=== PATIENT | female | born 1960 | race Caucasian/White ===

== ENCOUNTER 2017-06-04 22:19 | Observation (INO) | payer BC ==
[~2017-06-04] VITALS: Ht 157.5 cm; Wt 71.8 kg
[2017-06-04] MEDS ORDERED: ENALAPRIL MALEA10 MG PO (22:36)
[2017-06-04 22:47] LABS: POINT-OF-CARE METER ID UU14100415
[2017-06-04 23:06] LABS: HEMATOCRIT 39.3 % (36.0-46.0); MCH 30.9 PG (29.0-34.0); MCHC 34.6 G/DL (30.0-36.0); MCV 89.3 FL (83-99); MEAN PLAT.VOLUME 9.7 uM^3 (9.5-12.4); PLATELET COUNT 224 K/uL (156-360); RBC DIS.WIDTH-CV 11.8 % (11.8-14.6); RBC DIS.WIDTH-SD 38.4 % (39-53); WHITE BLOOD COUNT 6.9 K/uL (4.1-10.2)
[2017-06-04 23:16] LABS: CHLORIDE 111 mEq/L (99-109); POTASSIUM 3.5 mEq/L (3.7-5.4); SODIUM 145 mEq/L (136-147)
[2017-06-04 23:18] LABS: GLUCOSE 98 mg/dL (70-99)
[2017-06-04 23:19] LABS: ANION GAP 9 MEQ/L (2-14)
[2017-06-04 23:21] LABS: SERUM ETHYL ALCOHOL < 10 mg/dL
[2017-06-04 23:22] LABS: GFR ESTIMATE (CALCULATED) > 59 mL/min/
[2017-06-04 23:23] LABS: UREA NITROGEN (BUN) 19 mg/dL (9-23)
[2017-06-04 23:28] LABS: TROP-I INTERPRETATION NEGATIVE; TROPONIN-I < 0.01 ng/mL (0.0-0.30)
[2017-06-05] MEDS ORDERED: PREVACID30 MG PO (00:09)
[2017-06-05] MEDS ORDERED: DAILY VALUE1 EACH PO (00:10)
[2017-06-05] MEDS ORDERED: ASPIR 8181 M1 PO (00:10)
[2017-06-05] MEDS ORDERED: XYZAL5 MG PO (00:11)
[2017-06-05 01:16] VITALS: BP 169/81
[2017-06-05 02:20] VITALS: BP 146/88
[2017-06-05 03:30] VITALS: BP 149/74
[2017-06-05 06:16] LABS: ADD MIUA? NO; BILIRUBIN NEGATIVE; BLOOD NEGATIVE; COLOR YELLOW ((YELLOW)); GLUCOSE (STRIP) NEGATIVE; KETONES NEGATIVE; LEUKOCYTES NEGATIVE; NITRITE NEGATIVE; PROTEIN (STRIP) NEGATIVE; SPECIFIC GRAVITY 1.015 (1.000-1.030); UCUL ADDED? NO; UROBILINOGEN 0.2 MG/DL (0.2-1.0)
[2017-06-05 08:30] VITALS: BP 162/78
[2017-06-05 08:44] LABS: ALKALINE PHOSPHATASE 70 IU/L (3-129); ANION GAP 6 MEQ/L (2-14); CHLORIDE 108 MEQ/L (99-109); GFR ESTIMATE (CALCULATED) > 59 mL/min/; GLUCOSE 101 mg/dL (70-99); HDL CHOLESTEROL 50 MG/DL (Desirable>=50); LDL CHOLESTEROL 107 mg/dL (Desirable<100); NON-HDL CHOLESTEROL 118 mg/dL (Desirable<160); POTASSIUM 3.9 MEQ/L (3.7-5.4); SAMPLE HEMOLYSIS CHECK 0; SAMPLE ICTERIC CHECK 0; SAMPLE LIPEMIA CHECK 0; SODIUM 143 MEQ/L (136-147); TOTAL BILIRUBIN 0.3 MG/DL (0.0-1.0); TOTAL CHOLESTEROL 168 mg/dL (Desirable<200); TRIGLYCERIDES 55 MG/DL (Normal: <150); UREA NITROGEN (BUN) 17 mg/dL (9-23)
[2017-06-05 10:15] LABS: Estimated Average Glucose 100 mg/dL (70-123); HEMOGLOBIN A1c (GLYCOHEMOGLOB) 5.1 % HGB (Below 5.7)
[2017-06-05 16:39] VITALS: BP 138/81
[2017-06-05] MEDS ORDERED: ATORVASTATIN CA80 MG PO (16:55)
[2017-06-05] MEDS ORDERED: LIPITOR40 MG PO (17:00)
== END 2017-06-05 17:47 | disposition home or self-care (01) ==
LOC: EME 22:19 → EDOF 06-05 → ENRESERV 06-05 00:02 → 5WEST 06-05 01:04
PROVIDERS: Emergency Medicine; Physician Assistant Medical
DX: G45.4 Transient global amnesia (principal); I16.0 Hypertensive urgency; I10 Essential (primary) hypertension; R01.1 Cardiac murmur, unspecified; Z82.3 Family history of stroke; E87.6 Hypokalemia; E66.3 Overweight; Z82.49 Family history of ischemic heart disease and other diseases of the circulatory system; Z83.3 Family history of diabetes mellitus
CPT/HCPCS: 70450; 70551; 71020; 80048; 80053; 80061; 81003; 82948; 83036; 84484; 85027; 93005; 93880; 99281; 99284; G0378; G0480; J1650; J3480